=== PATIENT | female | born 1970 | race African-American/Black ===

== ENCOUNTER 2019-10-07 08:54 | Emergency (ER) | payer MEDICAID, SELFPAY ==
[2019-10-07 08:57] VITALS: BP 162/89; PULSE 85; RESP 18; TEMP 36.1; O2SAT 100
--- NOTE | 2019-10-07 09:03 | ECG_ITS ---
Measurements Intervals [place] Rate: 70 P: 67 MD: 163 QRS: -5 QRSD: 95 T: 17 QT: 398 QTc: 431 Interpretive Statements SINUS RHYTHM WITH MARKED SINUS ARRHYTHMIA POSSIBLE LEFT ATRIAL ENLARGEMENT INCOMPLETE RIGHT BUNDLE BRANCH BLOCK BORDERLINE ST-T WAVE ABNORMALITY- INFERIOR LEADS BASELINE WANDER- I, II, AVR, V1-V3 BORDERLINE ECG Electronically Signed On 10-07-2019 9:58:24 CDT by Nicholas Joseph D.O.
[2019-10-07 09:24] LABS: Basophils Percent Auto 0.2 % (0.2-1.2); Eosinophils Absolute Auto 0.1 K/mm3 (0-0.3); Eosinophils Percent Auto 0.9 % (0-4.4); Hematocrit 37.6 % (37.0-47.0); Hemoglobin 12.3 g/dL (12.0-15.0); Immature Granulocyte Absolute 0.03 K/mm3 (0.00-0.031); Immature Granulocyte Percent A 0.3 % (0-0.5); Lymphocytes Absolute Auto 1.93 K/mm3 (0.9-3.2); Lymphocytes Percent Auto 22.2 % (18.3-44.2); Mean Corpuscular HGB Conc 32.7 g/dl (32-36); Mean Corpuscular Hemoglobin 29.6 pg (26-34); Mean Corpuscular Volume 90.4 fl (80-100); Mean Platelet Volume 9.4 fl (7.4-10.4); Monocytes Absolute Auto 0.4 K/mm3 (0.1-0.6); Monocytes Percent Auto 4.6 % (2.6-8.5); Neutrophils Absolute Auto 6.2 K/mm3 (1.3-6.7); Neutrophils Percent Auto 71.8 % (45.5-73.1); Platelet Count Result 360 k/mm3 (150-375); Red Blood Count 4.16 M/mm3 (4.2-5.4); Red Cell Distribution Width 13.2 % (11.5-14.5); White Blood Count 8.7 K/mm3 (4.5-10.0)
[2019-10-07 09:25] VITALS: BP 148/82; PULSE 80; RESP 21; O2SAT 100
[2019-10-07 09:42] LABS: Blood Urea Nitrogen 9 mg/dL (7-17); Calcium 9.1 mg/dL (8.4-10.2); Carbon Dioxide 25 mmol/L (22-30); Chloride 104 mmol/L (98-107); Estimated CRCL calculation 81 ml/min; Estimated Glomerular Filt Rate > 60; Glucose 112 mg/dL (65-105); Potassium 3.5 mmol/L (3.4-5.0); Sodium 137 mmol/L (137-145)
--- NOTE | 2019-10-07 09:49 | ED.RECABL ---
HPI - Recheck/Abnormal Lab/Rx General Chief Complaint: Recheck/Abnormal Lab/Rx Stated Complaint: high BP Time Seen by Provider: 10/07/19 09:00 History of Present Illness HPI narrative: Patient presents with her brother for multiple complaints. #1 is her blood pressure has been elevated for the last month. She recently moved here from [place] and does not have a doctor in this area. She has not had hypertension before. She is on estrogen replacement for perimenopausal symptoms. She has night sweats for years. Her palms and her feet sweat for many years. She has dizziness that lasts seconds to minutes, which is motion where no motion is present associated with nausea. She has not had vomiting with that. Last night she had fast heart rate. She feels fatigued and tired. She recently had a in the family. Her appetite is poor, bowels are moving. 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 She is looking for new work. She needs a new doctor. complaint: other (High blood pressures) Initial visit (ago): week(s) Related Data Allergies Allergy/AdvReac Type Severity Reaction Status Date / Time No Known Allergies Allergy Verified 10/07/19 09:01 Review of Systems Review of Systems: Narrative: CONSTITUTIONAL: Denies fever, chills, but she has night sweats and palmar and feet sweating .EYES: Denies visual changes, redness, or discharge. ENT: Denies rhinorrhea, congestion, sore throat, or otalgia. CARDIOVASCULAR: Denies chest pain, but she did have palpitations. RESPIRATORY: Denies cough or dyspnea. GASTROINTESTINAL: Denies abdominal pain, vomiting, or diarrhea. She only has nausea when she has the vertigo. GENITOURINARY: Denies dysuria or hematuria. SKIN: Denies rash or itching. MUSCULOSKELETAL: Denies back pain, joint pain, or myalgia. NEUROLOGIC: Denies headache, numbness, or weakness. PSYCHIATRIC: Denies anxiety or depression. [facility] Surgical History Surgical History History of hysterectomy Social History Social History (Updated 10/07/19 @ 09:53 by Danelle Darnell MD) Smoking status: Former smoker Alcohol intake: current Substance use: current Substance use type: marijuana Exam Narrative: Exam Narrative: GENERAL: Well-appearing, well-nourished, and in no acute distress. HEAD: Normocephalic, atraumatic. EYES: PERRLA and EOMI. ENT: Nares clear, no rhinorrhea or epistaxis. Mucous membranes moist. NECK: Supple. CHEST: Clear to auscultation. No respiratory distress. HEART: Regular rate and rhythm. No murmur heard. Normal peripheral pulses. ABDOMEN: Soft, nontender, nondistended, normal active bowel sounds. EXTREMITIES: Normal range of motion. No edema. SKIN: Warm, dry, no rash. NEURO: No focal deficits. Alert and oriented x3. PSYCH: Normal mood and affect. Course Vital Signs Vital signs: Vital Signs Temperature 97.0 F L 10/07/19 08:57 Pulse Rate 85 10/07/19 08:57 Respiratory Rate 18 10/07/19 08:57 Blood Pressure 162/89 H 10/07/19 08:57 Pulse Oximetry 100 10/07/19 08:57 Temperature 97.0 F L 10/07/19 08:57 Pulse Rate 80 10/07/19 09:25 Respiratory Rate 21 H 10/07/19 09:25 Blood Pressure 148/82 H 10/07/19 09:25 Pulse Oximetry 100 10/07/19 09:25 MDM - Recheck/Abnormal Lab/Rx Medical Records Attestation: I reviewed the patient's medical records. Lab Data Attestation: I reviewed the patient's lab results. Result diagrams: 10/07/19 09:17 10/07/19 09:17 Labs: Lab Results 10/07/19 10/07/19 Range/Units 09:17 09:17 WBC 8.7 (4.5-10.0) K/mm3 RBC 4.16 L (4.2-5.4) M/mm3 Hgb 12.3 (12.0-15.0) g/dL Hct 37.6 (37.0-47.0) % MCV 90.4 (80-100) fl MCH 29.6 (26-34) pg MCHC 32.7 (32-36) g/dl RDW 13.2 (11.5-14.5) % Plt Count 360 (150-375) k/mm3 MPV 9.4 (7.4-10.4) fl Immature Gran % (Auto) 0.3 (0-0.5) % Neut % (Auto) 71.8 (45.5-73.
[2019-10-07 09:58] VITALS: BP 151/92; PULSE 73; RESP 22; O2SAT 100
== END 2019-10-07 10:02 | disposition home or self-care (01) ==
PROVIDERS: Emergency Provider Emergency Medicine
DX: I10 Essential (primary) hypertension (principal); Z87.891 Personal history of nicotine dependence; R00.2 Palpitations; R42 Dizziness and giddiness; R61 Generalized hyperhidrosis; I45.10 Unspecified right bundle-branch block; R94.31 Abnormal electrocardiogram [ECG] [EKG]
CPT/HCPCS: 36415; 80048; 85025; 93005; 99283

== ENCOUNTER 2019-11-30 09:58 | Outpatient (CLI) | payer BC, SELFPAY ==
--- NOTE | ~2019-11-30 | MM_ITS ---
EXAMINATION: MM screening demarco BI w mohsen HISTORY: Screening TECHNIQUE: Craniocaudal and mediolateral oblique 3-D tomosynthesis images were obtained and synthetic 2-D images were generated. CAD analysis was submitted and interpreted. COMPARISON: No prior mammogram is available for comparison at this institution. BREAST PARENCHYMAL COMPOSITION: There are scattered areas of fibroglandular density. FINDINGS: There is no evidence of suspicious mass, calcification, or architectural distortion to sugg est malignancy in either breast. There has been no suspicious interval change. IMPRESSION: 1. No mammographic evidence of malignancy. 2. Recommend routine screening mammography in one year. BI-RADS Category 1: Negative Reviewed, dictated and finalized at location A.
== END 2019-11-30 09:59 | disposition home or self-care (01) ==
LOC: ANHIMG 10:00
PROVIDERS: PCP Emergency Medicine; Visit Provider Emergency Medicine
DX: Z12.31 Encounter for screening mammogram for malignant neoplasm of breast (principal)
CPT/HCPCS: 77063; 77067

== ENCOUNTER 2020-01-08 12:44 | Emergency (ER) | payer OTHER, SELFPAY ==
--- NOTE | ~2020-01-08 | CT_ITS ---
EXAMINATION: CT brain wo con EXAM DATE: 01/08/2020 13:17 INDICATION: Temporary left facial and arm paresthesia, 4 minute period. TECHNIQUE: Spiral CT of the head was performed without contrast. Axial, coronal and sagittal images were reviewed. The dose-length product (DLP) for this examination was 605.33 mGy-cm. The exposure w as tailored according to patient size, and iterative reconstruction (ASIR) was used as additional dos e reduction technique. There is no prior study for comparison. FINDINGS: There is no acute intraparenchymal hemorrhage. No evidence of intraparenchymal brain mass lesion. No evidence of acute infarction. There is no mass effect or midline shift. The ventricles are normal in size. There are no extra-axial collections. There are no acute calvarial fractures. T he orbits are unremarkable. Soft tissue is unremarkable. The visualized sinuses and mastoid air daphne ls are well aerated. IMPRESSION: 1. Normal head CT examination. Reviewed, dictated and finalized at location A.
--- NOTE | ~2020-01-08 | XR_ITS ---
EXAMINATION: XR chest 1V DATE: 01/08/2020 13:22 INDICATION: Possible stroke with neurologic symptoms including left-sided heaviness and left-sided fa cial numbness. TECHNIQUE: PA view of the chest was obtained. COMPARISON: None FINDINGS: The lungs are clear with no focal airspace opacities, pulmonary edema, pleural effusion or pneumothor ax. The cardiomediastinal silhouette is normal. Visualized bones and soft tissues are unremarkable. IMPRESSION: 1. No acute cardiopulmonary disease. Reviewed, dictated and finalized at location A.
[2020-01-08 12:47] VITALS: BP 138/77; PULSE 62; RESP 18; TEMP 36.4; O2SAT 97
[2020-01-08 13:06] LABS: Basophils Percent Auto 0.4 % (0.2-1.2); Eosinophils Absolute Auto 0.1 K/mm3 (0-0.3); Eosinophils Percent Auto 2.3 % (0-4.4); Hematocrit 38.4 % (37.0-47.0); Hemoglobin 12.8 g/dL (12.0-15.0); Immature Granulocyte Absolute 0.01 K/mm3 (0.00-0.031); Immature Granulocyte Percent A 0.2 % (0-0.5); Lymphocytes Absolute Auto 2.25 K/mm3 (0.9-3.2); Lymphocytes Percent Auto 39.6 % (18.3-44.2); Mean Corpuscular HGB Conc 33.3 g/dl (32-36); Mean Corpuscular Hemoglobin 29.3 pg (26-34); Mean Corpuscular Volume 87.9 fl (80-100); Mean Platelet Volume 9.2 fl (7.4-10.4); Monocytes Absolute Auto 0.2 K/mm3 (0.1-0.6); Neutrophils Percent Auto 53.5 % (45.5-73.1); Platelet Count Result 348 k/mm3 (150-375); Red Blood Count 4.37 M/mm3 (4.2-5.4); Red Cell Distribution Width 13.5 % (11.5-14.5); White Blood Count 5.7 K/mm3 (4.5-10.0)
[2020-01-08 13:17] LABS: Partial Thromboplastin Time 23.3 SECONDS (22.3-36.8)
[2020-01-08 13:18] LABS: Anion Gap 7 mmol/L (8-16); Blood Urea Nitrogen 8 mg/dL (7-17); Carbon Dioxide 27 mmol/L (22-30); Chloride 103 mmol/L (98-107); Estimated CRCL calculation 70 ml/min; Estimated Glomerular Filt Rate > 60; Glucose 91 mg/dL (65-105); Sodium 137 mmol/L (137-145)
[2020-01-08 13:31] LABS: Troponin I < 0.012 ng/mL (0.000-0.034)
--- NOTE | 2020-01-08 15:12 | ED.NEUROSD ---
HPI - Neuro Symptoms/Deficit General Chief Complaint: Neuro Symptoms/Deficit Stated Complaint: left face and arm heaviness Time Seen by Provider: 01/08/20 14:55 Source: RN notes reviewed History of Present Illness HPI Narrative: Patient presents emergency department from home for left-sided paresthesias. Patient states that symptoms been constant for the past 3 weeks. She states she is felt a heaviness in her left face and her left arm. She denies having any weakness in this arm or face she denies any difficulty speaking or using the left arm. She denies any change in sensation. States she has seen her PCP and she is scheduled for an MRI next week. But wanted further evaluation she denies any fevers or chills chest pain shortness of breath or any other symptoms. She states that symptoms have been constant for the past 3 weeks and nothing makes it better or worse Related Data Allergies Allergy/AdvReac Type Severity Reaction Status Date / Time No Known Allergies Allergy Verified 10/07/19 09:01 Review of Systems Review of Systems: Narrative: Gen.: Denies fevers or chills Eyes: Denies eye pain or visual change ENT: Denies congestion Respiratory: Denies shortness of breath or cough CV: Denies chest pain or palpitations GI: Denies abdominal pain nausea, emesis or diarrhea Musculoskeletal: Denies back pain or muscle pain Neuro: See HPI Skin: Denies rash Except as documented, all other systems reviewed and negative [facility] Past Medical History Medical History (Updated 01/08/20 @ 15:14 by Aníbal Norwood DO) Hypertension Surgical History Surgical History History of hysterectomy Social History Social History Smoking status: Former smoker Alcohol intake: current Substance use: current Substance use type: marijuana Exam Narrative: Exam Narrative: APPEARANCE: No acute distress, nontoxic, resting in bed HEENT: Normocephalic, atraumatic, OMM, TMs clear bilaterally EYES: PERRL, EOMI NECK: Supple, nontender, full range of motion without pain, no meningismus RESPIRATORY: No respiratory distress, clear to auscultation bilaterally with no rhonchi wheezing or rales CARDIOVASCULAR: RRR s murmur ABDOMINAL: Soft, nontender, nondistended MUSCULOSKELETAL: Moves all extremities. No clubbing, cyanosis or edema. NEURO: A and O ?3, following commands, speech normal, cranial nerves II through XII grossly intact,muscle strength 5 out of 5 bilateral upper and lower extremities pinprick sensation intact bilaterally in the face and upper extremities SKIN:: Warm, dry. Normal Color PSYCHIATRIC: Normal affect/mood Course Course Emergency Course: Discussed Dr. Marx presentation work-up. Request patient start on 81 mg aspirin daily with discharge will follow as an outpatient Discussed with patient results of workup and diagnosis. Discussed need for follow-up with primary care, proper use of medication, and reasons to return to the emergency department. Patient understands and agrees to current treatment plan Vital Signs Vital signs: Vital Signs Temperature 97.5 F L 01/08/20 12:47 Pulse Rate 62 01/08/20 12:47 Respiratory Rate 18 01/08/20 12:47 Blood Pressure 138/77 01/08/20 12:47 Pulse Oximetry 97 01/08/20 12:47 Temperature 97.5 F L 01/08/20 12:47 Pulse Rate 62 01/08/20 12:47 Respiratory Rate 18 01/08/20 12:47 Blood Pressure 138/77 01/08/20 12:47 Pulse Oximetry 97 01/08/20 12:47 MDM - Neuro Symptoms/Deficit Lab Data Result diagrams: 01/08/20 12:57 01/08/20 12:57 Labs: Lab Results 01/08/20 01/08/20 01/08/20 Range/Units 12:57 12:57 12:57 WBC 5.7 (4.5-10.0) K/mm3 RBC 4.37 (4.2-5.4) M/mm3 Hgb 12.8 (12.0-15.0) g/dL Hct 38.4 (37.0-47.0) % MCV 87.9 (80-100) fl MCH 29.3 (26-34) pg MCHC 33.3 (32-36) g/dl RDW 13.5 (11.5-
[2020-01-08 15:24] VITALS: BP 146/86; PULSE 65; RESP 17; O2SAT 98
[2020-01-08] MEDS: ASPIRIN 81 MG CHEWABLE TABLET PO (16:00)
== END 2020-01-08 16:02 | disposition home or self-care (01) ==
PROVIDERS: Emergency Medicine; Emergency Provider Emergency Medicine; PCP Emergency Medicine
DX: R20.2 Paresthesia of skin (principal); I10 Essential (primary) hypertension; Z87.891 Personal history of nicotine dependence
CPT/HCPCS: 36415; 70450; 71045; 80048; 84484; 85025; 85610; 85730; 99284; A9270

== ENCOUNTER 2020-01-13 09:28 | Outpatient (CLI) | payer OTHER, SELFPAY ==
--- NOTE | ~2020-01-13 | XR_ITS ---
EXAMINATION: XR cervical spine 4-5V DATE: 01/13/2020 11:53 INDICATION: Left-sided neck pain. TECHNIQUE: 4 views of cervical spine were obtained. COMPARISON: None. FINDINGS: There is 7 degrees levocurvature of cervical spine. Vertebral body heights and intervertebr al disc heights are normal. There is multilevel mild facet joint osteoarthritis. No central canal sukhdeep nosis or prevertebral soft tissue swelling. IMPRESSION: 1. Multilevel mild facet joint osteoarthritis. Reviewed, dictated and finalized at location A.
--- NOTE | ~2020-01-13 | MR_ITS ---
EXAMINATION: MR brain/brain stem wo con DATE: 01/13/2020 11:44 INDICATION: Headache. TECHNIQUE: Magnetic resonance imaging (MRI) of the brain and brainstem was performed without intraven ous contrast. Sequences included sagittal and axial T1-weighted FSE, axial diffusion-weighted FS EPI, axial T2*-weighted GRE, axial T2-weighted FLAIR Propeller, and axial T2-weighted Propeller. Apparent diffusion coefficient (ADC) maps were created. COMPARISON: Head CT 01/08/2020 FINDINGS: There is no intracranial hemorrhage, acute infarction, or abnormal intracranial mass lesion . There are scattered areas of nonspecific increased T2-weighted signal intensity in the cerebral whi te matter. The ventricles are normal in size. The paranasal sinuses are clear. The orbits are normal. The mastoid air cells are normal. IMPRESSION: 1. Mild nonspecific cerebral white matter disease, which likely represents chronic small vessel ische alyce disease. Reviewed, dictated and finalized at location A. IMPRESSION: 1. Mild nonspecific cerebral white matter disease, which likely represents engineer operations and maintenance michelle small vessel ischemic disease.
--- NOTE | 2020-01-14 10:59 | WPDNEUROLOGY ---
Neurology EEG Report General Information Date of Study: 01/13/20 TEST EEG DIAGNOSIS Headaches CONDITION OF RECORDING awake drowsy and sleep EEG NUMBER [id number] CLINICAL HISTORY patient reported for the last couple of months she has been experiencing extreme dizziness recurring at least several times a day EEG DESCRIPTION basic resting occipital frequency consists of moderate amount of low to medium voltage 9 to11 hertz per 2nd alpha admixed with low-voltage 15 to 21 hertz per 2nd beta. During drowsiness low-voltage beta activity is seen diffusely admixed with waxing and waning posterior alpha rhythm. Bilateral symmetrical sleep activity seen during sleep with symmetrical sleep spindles as well for technique stimulation produced normal drive hyperventilation not done. IMPRESSION Normal EEG during wakefulness drowsiness and sleep
== END 2020-01-13 09:29 | disposition home or self-care (01) ==
PROVIDERS: PCP Emergency Medicine; Visit Provider Psychiatry & Neurology Neurology
DX: R51 Headache (principal); M50.30 Other cervical disc degeneration, unspecified cervical region; R93.0 Abnormal findings on diagnostic imaging of skull and head, not elsewhere classified
CPT/HCPCS: 70551; 72050; 95816

== ENCOUNTER 2020-04-10 08:01 | Outpatient (CLI) | payer OTHER, SELFPAY ==
--- NOTE | ~2020-04-10 | CT_ITS ---
EXAMINATION: CTA brain carotid DATE: 04/10/2020 08:33 INDICATION: Transient ischemic attack. TECHNIQUE: Computed tomographic angiography (CTA) of the head was performed without and with 100 mL O [id number] intravenous contrast. CTA of the neck was performed with intravenous contrast. Automated exposure control and iterative reconstruction technique were employed. The dose-length product was 1 563.07 mGy-cm. Maximum intensity projection and volume rendered 3D-reconstructions were created by amelie william technologist on a separate workstation. COMPARISON: Head CT 01/08/2020, brain MRI 01/13/2020 FINDINGS: HEAD CTA: There is no intracranial hemorrhage, acute infarction, or abnormal intracranial mass lesion . The ventricles are normal in size. 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 The mastoid air c ells are normal. The orbits are normal. The vertebral arteries are codominant. There is no significan t stenosis of basilar artery or the posterior cerebral arteries. The posterior communicating arteries are normal. There is no significant stenosis of the intracranial internal carotid arteries or anteri or or middle cerebral arteries. Anterior communicating artery is normal. There is no aneurysm. NECK CTA: There are no pathologically enlarged lymph nodes. There is no significant stenosis of the v ertebral arteries. There is no visible plaque in the proximal internal carotid arteries. There is 0% stenosis of the proximal right internal carotid artery relative to normal distal artery lumen diamete r (NASCET criteria). There is 0% stenosis of the proximal left internal carotid artery relative to no rmal distal artery lumen diameter. There is mild cervical spondylosis. IMPRESSION: 1. Normal brain. No aneurysm or significant intracranial arterial stenosis. 2. 0% stenosis of the proximal internal carotid arteries relative to normal distal artery lumen diame ters (NASCET criteria). Reviewed, dictated and finalized at location A. NTIFIC LABORATORY SUPERVISOR IMPRESSION: 1. Normal brain. No aneurysm or significant intracranial arterial stenosis. 2. 0% stenosis of the proximal internal carotid arteries relative to normal dis cruz artery lumen diameters (NASCET criteria).
[2020-04-10 08:26] LABS: Estimated Glomerular Filt Rate > 60
== END 2020-04-10 08:02 | disposition home or self-care (01) ==
LOC: ANHIMG 08:06
PROVIDERS: PCP Emergency Medicine; Visit Provider Psychiatry & Neurology Neurology
DX: G45.9 Transient cerebral ischemic attack, unspecified (principal)
CPT/HCPCS: 70496; 70498; Q9967

== ENCOUNTER 2020-11-02 20:44 | Emergency (ER) | payer OTHER, SELFPAY ==
[2020-11-02 21:40] VITALS: BP 164/87; PULSE 77; RESP 16; TEMP 36.5; O2SAT 100
--- NOTE | 2020-11-02 21:46 | ECG_ITS ---
Measurements Intervals [place] Rate: 58 P: 50 ND: 168 QRS: 2 QRSD: 89 T: 19 QT: 403 QTc: 399 Interpretive Statements SINUS BRADYCARDIA BASELINE ARTIFACT- I, II, AVR, AVL BORDERLINE ECG Electronically Signed On 11-03-2020 6:00:51 CDT by Nicholas Joseph D.O.
--- NOTE | 2020-11-03 00:22 | PC.NURSE ---
Called 3x for pt. to be taken to a room. no answer
== END 2020-11-03 00:30 | disposition left against medical advice (07) ==
LOC: ANHED 11-03 00:30
PROVIDERS: Emergency Provider Emergency Medicine; PCP Emergency Medicine
DX: Z53.21 Procedure and treatment not carried out due to patient leaving prior to being seen by health care provider (principal)
CPT/HCPCS: 93005; 99199

== ENCOUNTER 2020-11-23 17:49 | Outpatient (CLI) | payer OTHER, SELFPAY ==
[2020-11-23 18:14] LABS: Hematocrit 38.7 % (37.0-47.0); Mean Corpuscular HGB Conc 33.6 g/dl (32-36); Mean Corpuscular Hemoglobin 29.5 pg (26-34); Mean Corpuscular Volume 87.8 fl (80-100); Mean Platelet Volume 9.3 fl (7.4-10.4); Platelet Count Result 359 k/mm3 (150-375); Red Blood Count 4.41 M/mm3 (4.2-5.4); Red Cell Distribution Width 13.1 % (11.5-14.5); White Blood Count 6.3 K/mm3 (4.5-10.0)
[2020-11-23 18:19] LABS: Add Urine Microscopic? YES; Appearance Urine Cloudy (Clear); Bilirubin Urine Negative (Negative); Blood Urine Negative (Negative); Color Urine Yellow (Yellow); Glucose Urine UA Negative (Negative); Ketones Urine Negative (Negative); Leukocyte Esterase Ur Negative LEU/UL (NEGATIVE); Mucus Urine Rare /lpf; Nitrate Urine Negative (Negative); Protein Urine Negative (Negative); Squamous Epithelial Cell Urine Few /hpf (Few); Urobilinogen Urine Negative mg/dL (<2.0); WBC Urine 0-3 /hpf (0-3)
[2020-11-23 18:26] LABS: Alanine Aminotransferase 11 U/L (4-35); Albumin Level 4.7 g/dL (3.5-5.1); Alkaline Phosphatase 57 U/L (38-126); Anion Gap 12 mmol/L (8-16); Aspartate Amino Transferase 16 U/L (14-36); Bilirubin,Total 0.2 mg/dL (0.2-1.3); Blood Urea Nitrogen 10 mg/dL (7-17); Calcium 9.9 mg/dL (8.4-10.2); Carbon Dioxide 23 mmol/L (22-30); Chloride 103 mmol/L (98-107); Estimated Glomerular Filt Rate > 60; Glucose 98 mg/dL (65-110); Sodium 138 mmol/L (137-145)
[2020-11-23 19:02] LABS: Iron 78 ug/dL (37-170)
[2020-11-24 17:27] LABS: Percent Iron Saturation 19 % (20-50)
[2020-11-24 17:31] LABS: Free T4 Free Thyroxine 1.14 ng/mL (0.78-2.19)
== END 2020-11-23 17:50 | disposition home or self-care (01) ==
PROVIDERS: PCP Emergency Medicine; Visit Provider Emergency Medicine
DX: R11.0 Nausea (principal); R53.1 Weakness; R82.90 Unspecified abnormal findings in urine; I10 Essential (primary) hypertension
CPT/HCPCS: 36415; 80053; 81001; 83540; 83550; 84439; 84443; 85027; 87086; 87088

== ENCOUNTER 2021-01-20 17:41 | Emergency (ER) | payer OTHER, SELFPAY ==
--- NOTE | ~2021-01-20 | XR_ITS ---
EXAMINATION: XR chest 2V DATE: 01/20/2021 21:41 INDICATION: Dizziness and headache TECHNIQUE: AP and lateral views of the chest are obtained. COMPARISON: 01/08/2020 FINDINGS: The lungs are free of acute opacities. There is no pleural effusion or pneumothorax. The ca rdiomediastinal silhouette is normal. There is mild thoracic spondylosis. IMPRESSION: 1. No acute cardiopulmonary abnormality. Reviewed, dictated and finalized at location A.
[2021-01-20 17:43] VITALS: BP 141/83; PULSE 70; RESP 17; TEMP 37.2; O2SAT 100
[2021-01-20 19:37] VITALS: BP 149/90; PULSE 71; RESP 15; O2SAT 100
--- NOTE | 2021-01-20 19:39 | ECG_ITS ---
Measurements Intervals [place] Rate: 63 P: 55 CT: 191 QRS: -5 QRSD: 100 T: 13 QT: 405 QTc: 415 Interpretive Statements SINUS RHYTHM BASELINE ARTIFACT- V6 NORMAL ECG Electronically Signed On 01-20-2021 20:17:58 CDT by Nicholas Joseph D.O.
[2021-01-20 20:00] LABS: Basophils Percent Auto 0.4 % (0.2-1.2); Eosinophils Absolute Auto 0.2 K/mm3 (0-0.3); Eosinophils Percent Auto 3.4 % (0-4.4); Hemoglobin 12.1 g/dL (12.0-15.0); Immature Granulocyte Absolute 0.01 K/mm3 (0.00-0.031); Immature Granulocyte Percent A 0.1 % (0-0.5); Lymphocytes Absolute Auto 3.11 K/mm3 (0.9-3.2); Lymphocytes Percent Auto 45.9 % (18.3-44.2); Mean Corpuscular HGB Conc 32.7 g/dl (32-36); Mean Corpuscular Hemoglobin 29.4 pg (26-34); Mean Corpuscular Volume 89.8 fl (80-100); Mean Platelet Volume 8.9 fl (7.4-10.4); Monocytes Absolute Auto 0.3 K/mm3 (0.1-0.6); Monocytes Percent Auto 4.1 % (2.6-8.5); Neutrophils Absolute Auto 3.1 K/mm3 (1.3-6.7); Neutrophils Percent Auto 46.1 % (45.5-73.1); Platelet Count Result 331 k/mm3 (150-375); Red Blood Count 4.12 M/mm3 (4.2-5.4); Red Cell Distribution Width 12.8 % (11.5-14.5); White Blood Count 6.8 K/mm3 (4.5-10.0)
[2021-01-20 20:10] LABS: Alanine Aminotransferase 11 U/L (4-35); Albumin Level 4.7 g/dL (3.5-5.1); Alkaline Phosphatase 60 U/L (38-126); Anion Gap 10 mmol/L (8-16); Aspartate Amino Transferase 18 U/L (14-36); Bilirubin,Total 0.3 mg/dL (0.2-1.3); Blood Urea Nitrogen 9 mg/dL (7-17); Carbon Dioxide 27 mmol/L (22-30); Chloride 101 mmol/L (98-107); Estimated CRCL calculation 92 ml/min; Estimated Glomerular Filt Rate > 60; Glucose 133 mg/dL (65-110); Sodium 138 mmol/L (137-145)
[2021-01-20 21:09] LABS: Add Urine Microscopic? NO; Appearance Urine Clear (Clear); Bilirubin Urine Negative (Negative); Blood Urine Negative (Negative); Color Urine Colorless (Yellow); Glucose Urine UA Negative (Negative); Ketones Urine Negative (Negative); Leukocyte Esterase Ur Negative LEU/UL (Negative); Nitrate Urine Negative (Negative); Protein Urine Negative (Negative); Urobilinogen Urine Negative mg/dL (<2.0)
[2021-01-20 21:13] VITALS: BP 142/87; PULSE 74; RESP 18; O2SAT 100
[2021-01-20 21:28] LABS: Specific Grav Ur 1.004 (1.001-1.035)
[2021-01-20 21:30] VITALS: BP 147/87; PULSE 61
--- NOTE | 2021-01-20 21:36 | ED.DIZZY ---
HPI - Dizziness General Chief Complaint: Dizziness Stated Complaint: lightheaded, blurred vision Time Seen by Provider: 01/20/21 20:59 Source: patient, RN notes reviewed and old records reviewed Mode of arrival: ambulatory Limitations: no limitations History of Present Illness HPI Narrative: This is a 50 year old female who presents for evaluation of dizziness. Patient reports she has been dealing with intermittent dizziness for at least 1 year. She describes a feeling of feeling off balance with frontal headache and blurred vision. This sensation will last for seconds. She also reports feeling of heart racing, left breast pain. Her symptoms are not worsened with position change. She states she has been evaluated by neurology and cardiology for her symptoms. She reports having recent MRI brain that showed chronic small vessel disease. On review of her chart, she has also had a normal EEG. She states her cardiac evaluation has been unremarkable. She came to ER because she just wants to find out cause of her symptoms. They have not worsened. Related Data Allergies Allergy/AdvReac Type Severity Reaction Status Date / Time No Known Allergies Allergy Verified 10/07/19 09:01 Review of Systems Review of Systems: All systems reviewed & are unremarkable except as noted in HPI and below Constitutional: Constitutional: Denies chills and Denies fever(s) ENT: Reports dizziness and Denies sore throat Cardiovascular: Cardiovascular: Reports chest pain and Reports rapid heart rate Respiratory: Respiratory: Denies cough and Denies dyspnea Gastrointestinal: Gastrointestinal: Denies abdominal pain PMFSH Past Medical History Medical History Hypertension Surgical History Surgical History History of hysterectomy Social History Social History Smoking status: Former smoker Alcohol intake: current Substance use: current Substance use type: marijuana Gender identity (if verbalized by the patient): Female Exam Narrative: GENERAL: Well-appearing, well-nourished, and in no acute distress. HEAD: Normocephalic, atraumatic EYES: PERRLA and EOMI, conjunctiva clear without discharge EARS: TM's clear bilaterally without erythema or dullness THROAT:Mucous membranes moist, Oropharynx normal without erythema, exudate, peritonsillar swelling or fluctuance NECK: Supple, without lymphadenopathy or mass RESPIRATORY: No respiratory distress, Airway patent, Respirations non-labored, Clear to auscultation without rales, rhonchi or wheeze HEART: Regular rate and rhythm. No murmur heard. Normal peripheral pulses. ABDOMEN: Soft, nontender, nondistended, normal active bowel sounds. No masses. No rebound or guarding, No organomegaly. EXTREMITIES: No edema, normal strength with full range of motion. SKIN: Warm, dry, normal color without rash NEURO: Alert and oriented x3. CN 2-12 grossly intact. No focal deficits. PSYCH: Normal mood and affect. Neuro: General: patient oriented x3, moves all extremities, no meningeal signs, no focal motor deficits and CN's II-XI intact bilaterally Cranial nerves: Yes CN's II-XII intact bilaterally and Yes Nystagmus not present Speech: normal speech Gait exam (Neuro): Normal gait present Motor exam (neuro): 5/5 motor strength present throughout Sensory Exam: normal sensation Coordination: [id number] test normal, [id number] test normal and tandem gait normal Psych: Mental Status: mental status grossly normal Affect: normal affect Course Reevaluation(s) Reevaluation #1: I discussed with patient that her evaluated has been unremarkable today. She has no deficits to suggest need for repeat imaging. She will follow up with PCP Date: 01/21/21 Time: 00:37 Vital Signs Vital signs: Vital Signs Temperature 99.0 F
[2021-01-20 21:52] LABS: Glucose Point of Care 128 mg/dl (65-105)
[2021-01-20] MEDS: MECLIZINE HCL 25 MG TABLET PO (21:57)
--- NOTE | 2021-01-20 22:46 | PC.NURSE ---
called lab spoke with ceferino to add on lab orders at this time.
[2021-01-20 22:56] LABS: Magnesium 1.8 mg/dL (1.6-2.3)
[2021-01-20 23:09] LABS: Troponin I < 0.012 ng/mL (0.000-0.034)
[2021-01-20 23:12] VITALS: BP 152/91; PULSE 85; RESP 15; O2SAT 99
[2021-01-20 23:25] LABS: INR 0.9; Prothrombin Time 12.1 Seconds (11.1-14.7)
[2021-01-20 23:26] LABS: Partial Thromboplastin Time 25.5 SECONDS (22.3-36.8)
[2021-01-20 23:28] LABS: D Dimer 0.39 ug/mL (<0.48)
[2021-01-21 00:29] VITALS: BP 133/91; PULSE 66
[2021-01-21 00:30] VITALS: BP 151/77; PULSE 67
[2021-01-21 00:34] VITALS: BP 157/77; PULSE 66; RESP 17; O2SAT 99
== END 2021-01-21 00:51 | disposition home or self-care (01) ==
PROVIDERS: Emergency Medicine; Emergency Provider General Practice; PCP Emergency Medicine
DX: R42 Dizziness and giddiness (principal); I10 Essential (primary) hypertension; Z87.891 Personal history of nicotine dependence
CPT/HCPCS: 36415; 71046; 80053; 81003; 82948; 83735; 84484; 85025; 85380; 85610; 85730; 93005; 99284; A9270

== ENCOUNTER 2021-01-21 08:39 | Outpatient (CLI) | payer OTHER, SELFPAY ==
[2021-01-21 10:07] LABS: IFOB Positive Control Positive; Immunochemical Fecal Occult Bl Negative (N)
== END 2021-01-21 08:40 | disposition home or self-care (01) ==
LOC: ANHLAB 08:43
PROVIDERS: PCP Emergency Medicine; Visit Provider Internal Medicine Gastroenterology
DX: R19.7 Diarrhea, unspecified (principal)
CPT/HCPCS: 82274; 87045; 87177; 87209; 87324; 87427; 89055

== ENCOUNTER 2021-02-02 17:31 | Outpatient (CLI) | payer OTHER, SELFPAY ==
--- NOTE | ~2021-02-02 | MM_ITS ---
EXAMINATION: MM screening demarco BI w mohsen HISTORY: Screening TECHNIQUE: Craniocaudal and mediolateral oblique 3-D tomosynthesis images were obtained and synthetic 2-D images were generated. CAD analysis was submitted and interpreted. COMPARISON: 11/30/2019 BREAST PARENCHYMAL COMPOSITION: There are scattered areas of fibroglandular density. FINDINGS: There is no evidence of suspicious mass, calcification, or architectural distortion to sugg est malignancy in either breast. There has been no suspicious interval change. IMPRESSION: 1. No mammographic evidence of malignancy. 2. Recommend routine screening mammography in one year. BI-RADS Category 1: Negative Reviewed, dictated and finalized at location A.
== END 2021-02-02 17:32 | disposition home or self-care (01) ==
PROVIDERS: PCP Emergency Medicine; Visit Provider Obstetrics & Gynecology
DX: Z12.31 Encounter for screening mammogram for malignant neoplasm of breast (principal)
CPT/HCPCS: 77063; 77067